=== PATIENT | female | born 1995 | race African-American/Black ===

== ENCOUNTER 2022-11-09 21:01 | Emergency (ER) | payer OTHER ==
[~2022-11-09] VITALS: Ht 162.6 cm; Wt 55.5 kg
[2022-11-09] MEDS ORDERED: CeFAZolin 2 GM/DEXTROSE 50 ML IV ONE (21:45)
[2022-11-09] MEDS ORDERED: OXYTOCIN IV ONE ×2 (21:45→22:02)
[2022-11-09] MEDS ORDERED: RINGERS LACTATED IV ONE ×2 (21:45→22:02)
[2022-11-09 21:52] LABS: BASOPHILS % (AUTO) 0.2 % (0.0-2.0); EOSINOPHILS % (AUTO) 0.5 % (1.0-6.0); HEMATOCRIT 26.1 % (36-46); HEMOGLOBIN 7.7 g/dL (12.0-16.0); LYMPHOCYTES % (AUTO) 14.9 % (22.0-44.0); MEAN CORPUSCULAR HEMOGLOBIN 20.6 pg (26.0-34.0); MEAN CORPUSCULAR HGB CONC 29.6 G/dL (31.0-37.0); MEAN CORPUSCULAR VOLUME 70 fL (80-100); MONOCYTES # (AUTO) 1.6 K/uL (0.1-1.0); MONOCYTES % (AUTO) 8.3 % (2.0-9.0); NEUTROPHILS # (AUTO) 15.2 K/uL (1.8-7.7); NEUTROPHILS % (AUTO) 76.1 % (40.0-70.0); PLATELET COUNT (AUTO) 532 K/uL (150-450); RED BLOOD CELL COUNT(AUTO) 3.75 MIL/uL (4.00-5.20); RED CELL DISTRIBUTION WIDTH 19.9 % (11.5-14.5)
[2022-11-09 22:04] LABS: PROTHROMBIN TIME 10.3 SEC (9.4-11.6)
[2022-11-09 22:24] VITALS: BP 115/78
[2022-11-09 22:28] LABS: PLATELET MORPHOLOGY COMMENT LARGE PLTS PRESENT
== END 2022-11-09 23:40 | disposition short-term general hospital (02) ==
LOC: EMS 21:06
DX: O03.89 Complete or unspecified spontaneous abortion with other complications (principal); O36.4XX0 Maternal care for intrauterine death, not applicable or unspecified; O99.330 Smoking (tobacco) complicating pregnancy, unspecified trimester; F15.10 Other stimulant abuse, uncomplicated; F20.9 Schizophrenia, unspecified; Z3A.00 Weeks of gestation of pregnancy not specified; Z37.1 Single stillbirth
CPT/HCPCS: 99291; 96365; 84702; 85025; 85610; 85730; 86850; 86900; 86901; 36415; 96368; J7120; J0690; J2590